=== PATIENT | female | born 1955 | race African-American/Black ===

== ENCOUNTER 2017-06-12 11:35 | Outpatient (CLI) | payer MEDICARE | END 2017-06-12 11:36 | disposition home or self-care (01) | LOC: BICMAMMO 11:35 | PROVIDERS: ATTEND Specialist | DX: Z12.31 Encounter for screening mammogram for malignant neoplasm of breast (principal) | CPT/HCPCS: 77063; 77067 ==

== ENCOUNTER 2018-08-29 10:30 | Outpatient (CLI) | payer MEDICARE ==
--- NOTE | 2018-08-29 11:36 | MMO ---
Bilateral MAMMO Bilat Screen [facility]. CLINICAL HISTORY: Patient is 62 years old and is seen for screening. The patient has no family history of breast cancer. The patient has no personal history of cancer. The patient has a history of right Excisional Biopsy in 1990 - benign. VIEWS: The views performed were: bilateral craniocaudal with tomosynthesis and bilateral mediolateral oblique with tomosynthesis. FILMS COMPARED: The present examination has been compared to prior imaging studies performed at [facility] on 01/13/2014, 01/18/2015, 03/07/2016 and 06/12/2017. MAMMOGRAM FINDINGS: The breasts are almost entirely fat. There are stable benign appearing calcifications seen in both breasts. There are no suspicious masses, suspicious calcifications, or new areas of architectural distortion. IMPRESSION: THERE IS NO MAMMOGRAPHIC EVIDENCE OF MALIGNANCY. A ROUTINE FOLLOW-UP MAMMOGRAM IN 1 YEAR IS RECOMMENDED. THE RESULTS OF THIS EXAM WERE SENT TO THE PATIENT. ACR BI-RADS Category 2 - Benign finding MAMMOGRAPHY NOTE: 1. A negative mammogram report should not delay a biopsy if a dominant of clinically suspicious mass is present. 2. Approximately 10% to 15% of breast cancers are not detected by mammography. 3. Adenosis and dense breasts may obscure an underlying neoplasm.
== END 2018-08-29 10:31 | disposition home or self-care (01) ==
LOC: BICMAMMO 10:30
PROVIDERS: ATTEND Family Medicine
DX: Z12.31 Encounter for screening mammogram for malignant neoplasm of breast (principal)
CPT/HCPCS: 77063; 77067

== ENCOUNTER 2019-04-07 07:52 | Inpatient (IN) | payer MEDICARE ==
[2019-04-06 13:35] VITALS: BMI 45.7
[2019-04-07] MEDS ORDERED: Lidocaine 1% PF 5 ML VIAL ONE (11:38)
[2019-04-07] MEDS ORDERED: PROPOFOL 200 MG/20 ML VIAL ONE (11:38)
--- NOTE | 2019-04-07 14:43 | OP ---
DATE OF PROCEDURE: 04/07/2019 PROCEDURE PERFORMED: Esophagogastroduodenoscopy. PREMEDICATION: Given by Anesthesiology Department. PREPROCEDURE DIAGNOSES: 1. Chronic gastroesophageal reflux disease. 2. Thomas's surveillance. POSTPROCEDURE DIAGNOSES: 1. Normal upper endoscopy. 2. Z-line at 39 cm and normal. DESCRIPTION OF PROCEDURE: Written consents were obtained prior to procedure. After adequate sedation, the forward-viewing endoscope was advanced down the stomach under direct vision to the second portion of duodenum. The duodenum appeared normal. The bulb appeared normal. The pylorus was patent. The gastric antrum, body, fundus, and cardia all appeared normal. Retroflexion demonstrated a small sliding-type hiatal hernia. The GE junction with Z-line is located at 39 cm and appeared regular and normal. The lower, mid, and upper esophagus appeared normal. ASSESSMENT: 1. Normal upper endoscopy. 2. Small sliding-type hiatal hernia. 3. Normal and regular Z-line without Thomas's. RECOMMENDATION: 1. Anti-reflux measures. 2. Weight reduction. 3. Continue with pantoprazole 40 mg p.o. daily. Job ID: [id number]
--- NOTE | 2019-04-07 14:47 | OP ---
DATE OF PROCEDURE: 04/07/2019 PROCEDURE PERFORMED: Colonoscopy. PREMEDICATION: Given by Anesthesiology Department. PREPROCEDURE DIAGNOSIS: History of colon polyps. POSTPROCEDURE DIAGNOSIS: Normal colon exam. DESCRIPTION OF PROCEDURE: Written consents were obtained prior to procedure. After adequate sedation, rectal exam was performed was normal. The endoscope was advanced to the cecum. The quality of the bowel prep was good. The cecum, ascending colon, hepatic flexure, transverse colon, splenic flexure, descending colon appeared normal. The sigmoid colon appeared to be somewhat torturous, but otherwise normal. Rectosigmoid junction was normal. Retroflexion did not show any abnormality. The patient tolerated the procedure well. ASSESSMENT: Normal colon exam. RECOMMENDATION: Repeat colon surveillance in 5 years. Job ID: [id number]
[2019-04-07] MEDS ORDERED: Acetaminophen 325 MG TAB PO PRN (15:00)
[2019-04-07] MEDS ORDERED: Ondansetron PF 4 MG/2 ML Vial IVP PRN (15:00)
[2019-04-07] MEDS ORDERED: Mag-Al 1200 mg/1200 mg/30 ML UDCUP ONE (15:04)
[2019-04-07] MEDS: Diltiazem HCl 125 MG, Admixture Fee 1 EACH in Sodium Chloride 0.9% 100 ML IVPB SCH (17:05)
--- NOTE | 2019-04-07 17:49 | CON ---
DATE OF CONSULTATION: HISTORY OF PRESENT ILLNESS: The patient is a 63-year-old woman with no known cardiac history who developed palpitations after undergoing an endoscopy. She was in her usual state of health and underwent the GI procedure today. She is in the recovery room. She developed palpitations. The patient denied having any chest discomfort. PAST MEDICAL HISTORY: 1. Hypertension. 2. Sinus problems. 3. Sciatic nerve problems. PAST SURGICAL HISTORY: Hysterectomy, , breast surgery, and thyroid surgery. SOCIAL HISTORY: Nonsmoker. FAMILY HISTORY: Positive family history of heart disease. ALLERGIES: NO KNOWN DRUG ALLERGIES. MEDICATIONS: 1. Lisinopril 5 daily. 2. Tramadol 50 b.i.d. 3. Synthroid 175 mcg daily. 4. Protonix 40 daily. 5. Multivitamin tablet daily. REVIEW OF SYSTEMS: Ten-point system otherwise unremarkable. No history of easy bruising or bleeding. PHYSICAL EXAMINATION: GENERAL: Obese woman, in no acute distress. VITAL SIGNS: With a blood pressure of 120/60. NECK: Showed no jugular venous distention. LUNGS: Clear to auscultation. HEART: Irregular rate and rhythm. Normal S1 and S2. ABDOMEN: Distended. EXTREMITIES: Showed no edema. VASCULAR: Radial pulses 2+ LABORATORY DATA: Laboratory results are pending. EKG atrial fibrillation otherwise unremarkable . IMPRESSION AND PLAN: 1. New onset atrial fibrillation. 2. Hypertension. 3. Obesity. This patient presents with new onset atrial fibrillation. The patient has a CHADS-VAS score of two, female sex, and hypertension. The patient will be treated with IV Cardizem. I have recommended proceeding with EDUARD/ cardioversion. We will start the patient on Eliquis . We will check the patient 's thyroid panel. We will follow this patient with you through her hospitalization. Job ID: [id number] [facility]
--- NOTE | 2019-04-07 18:17 | PDOC.HHP ---
Hospitalist HPI - History of Present Illness New onset Afib w RVR History of Present Illness: 63 YO F with PMH of hypothyroidism, morbid obesity, sciatica and GERD who was in the hospital for an outpt EGD and colonoscopy, for w/u of GERD and colon polyp. Post procedure, pt went into Afib w RVR. This is her first episode. Cardiology was called and pt was given a one time dose of Cardizem. She was rec by cardiology to be admitted for further evaluation. She will have a EDUARD and possible ablation tmr. Hospitalist ROS - Review of Systems Constitutional: denies: fever, chills, sweats, weakness, malaise, other Eyes: denies: pain, vision change, conjunctivae inflammation, eyelid inflammation, redness, other ENT: denies: ear pain, ear discharge, nose pain, nose discharge, nose congestion , mouth pain, mouth swelling, throat pain, throat swelling, other Respiratory: denies: cough, dry, shortness of breath, hemoptysis, SOB with excertion, pleuritic pain, sputum, wheezing, other Cardiovascular: denies: chest pain, palpitations, orthopnea, paroxysmal noc. dyspnea, edema, light headedness, other Musculoskeletal: reports: back pain. denies: neck pain, shoulder pain, arm pain , hand pain, leg pain, foot pain, other Skin: denies: rash, lesions, mp, bruising, other Neurological: denies: weakness, numbness, incoordination, change in speech, confusion, seizures, other - Medication Medications: Active Medications Generic Name Dose Route Start Last Admin Trade Name Freq PRN Reason Stop Dose Admin Diltiazem HCl 10 mg 04/07/19 16:45 04/07/19 17:05 Cardizem SLOW IVP 04/07/19 18:45 10 mg NOW EDWARD Administration Diltiazem HCl 125 mg/ 125 mls @ 10 mls/hr 04/07/19 16:45 04/07/19 17:05 Miscellaneous Medication 1 IVPB 125 mls each/ Sodium Chloride INF EDWARD Administration Protocol As Directed Hospitalist History - Past Medical History Gastrointestinal: reports: GERD Musculoskeletal: reports: Chronic low back pain Endocrine: reports: Hypothyroidism - Past Surgical History Past Surgical History: reports: Breast Biopsy, , Other (Thyroid Sx) - Family History Family History: reports: hypertension - Social History Smoking Status: Never smoker Alcohol: reports: None Drugs: reports: none Living Situation: With Family - Exam General Appearance: NAD, awake alert Eye: PERRL, anicteric sclera ENT: normocephalic atraumatic, no oropharyngeal lesions, moist mucosa Neck: supple, symmetric, no JVD, no thyromegaly, no lymphadenopathy Heart: no murmur, no gallops, no rubs, normal peripheral pulses, irregular Respiratory: CTAB, no wheezes, no rales, no ronchi Gastrointestinal: soft, non-tender, non-distended, normal bowel sounds Extremities: no cyanosis, no clubbing, no edema Skin: normal turgor, no lesions Neurological: cranial nerve grossly intact, normal sensation to touch, no focal deficits Musculoskeletal: normal tone, normal strength Psychiatric: normal affect, normal behavior, A&O x 3 Hospitalist H&P A/P - Problem (1) Paroxysmal A-fib Code(s): I48.0 - PAROXYSMAL ATRIAL FIBRILLATION Status: Acute Assessment and Plan: New onset. Seen by cardiology. Will be started on a cardizem gtt, and will have a EDUARD w possible ablation tmr. (2) GERD (gastroesophageal reflux disease) Code(s): K21.9 - GASTRO-ESOPHAGEAL REFLUX DISEASE WITHOUT ESOPHAGITIS Status: Acute Qualifiers: Esophagitis presence: without esophagitis Qualified Code(s): K21.9 - Gastro -esophageal reflux disease without esophagitis Assessment and Plan: Cont PPI. F/u with EGD results. (3) Colon polyp Code(s): K63.5 - POLYP OF COLON Status: Acute Qualifiers: Colon polyp type: unspecified Assessment and Plan: s/p Colonoscopy. Will f/u with GI for biopsy results as an outpt. (4) Hypothyroidism Code(s): E03.9 - HYPOTHYROIDISM, UNSPECIFIED Status: Acute Qualifiers: Hypothyroidism type: acquired Qualified Code(s): E03.9 - Hypothyroidism, unspecified Assessment and Plan: Cont synthroid. Will check TSH. - Plan Plan: PPx: PPI. CODE: FULL. Dispo: Admit as inpatient.
--- NOTE | 2019-04-07 21:31 | PRG ---
DATE OF SERVICE: 04/07/2019 HISTORY OF PRESENT ILLNESS: Mrs. Yates is a 63-year-old female who underwent an outpatient upper endoscopy and colonoscopy by me this morning. She did well with the procedure. There was no significant abnormalities seen with her examinations. In the postop area, she had palpitations. Subsequent electrocardiogram demonstrated atrial fibrillation with rapid rate. This was controlled with Cardizem. She was admitted for further evaluation with plan for transesophageal echocardiogram and possible ablation. PHYSICAL EXAMINATION: VITAL SIGNS: Temperature 98.1, blood pressure 112/83, pulse of 98. GENERAL: She is alert, in no distress. EYES: Shows anicteric sclerae. NECK: Supple. CV: Shows normal S1, S2. Regular rate. CHEST: Shows breath sounds. ABDOMEN: Protuberant, but soft and nontender. She has active bowel sounds. EXTREMITIES: Shows no edema. ASSESSMENT: 1. Status post outpatient esophagogastroduodenoscopy and colonoscopy this morning without significant finding. The evaluation was done for chronic gastroesophageal reflux disease and history of colon polyp. 2. No significant gastrointestinal issue at the present time. 3. New onset atrial fibrillation. PLAN: GI service is available, if needed. I will follow patient peripherally. Job ID: [id number]
[2019-04-07] MEDS: traMADol HCl 50 MG TAB PO SCH (21:55)
[2019-04-07] MEDS: Apixaban 5 MG TAB PO SCH (21:55)
[2019-04-08] MEDS: Diltiazem HCl 125 MG, Admixture Fee 1 EACH in Sodium Chloride 0.9% 100 ML IVPB SCH (03:43)
[2019-04-08 04:45] LABS: #Basophils 0.1 thou/uL (0.0-0.2); #Eosinphils 0.1 thou/uL (0.0-0.7); #Lymphocytes 2.8 thou/uL (1.20-3.40); #Monocytes 0.5 thou/uL (0.11-0.59); #Neutrophils 5.2 thou/uL (1.40-6.50); %Basophils 0.7 % (0.0-1.0); %Eosinophils 1.1 % (0.0-10.0); %Neutrophils 60.2 % (42.0-75.0); Mean Corpuscular HGB CONC 31.1 g/dL (32.0-36.0); Mean Corpuscular Hemoglobin 26.9 pg (27.0-31.0); Mean Corpuscular Volume 86.5 fL (78.0-98.0); Mean Platelet Volume 8.2 fL (7.4-10.4); Platelet Count 240 thou/uL (130-400); RBC Distribution Width 13.3 % (11.5-14.5); Red Blood Cell (RBC) Count 4.85 mill/uL (4.20-5.40); White Blood Cell (WBC) Count 8.7 thou/uL (4.8-10.8)
[2019-04-08 04:54] LABS: Anion Gap 13 mmol/L (10-20); BUN (Urea Nitrogen) 8 mg/dL (9.8-20.1); Calc. Creatinine Clearance 143 mL/min (70-130); Calcium 9.1 mg/dL (7.8-10.44); Carbon Dioxide 24 mmol/L (23-31); Chloride 108 mmol/L (98-107); Estimated GFR-MDRD Greater than 90; Glucose 112 mg/dL (80-115); Potassium 3.5 mmol/L (3.5-5.1); Sodium 141 mmol/L (136-145)
[2019-04-08] MEDS: Levothyroxine 175 MCG TAB PO SCH (07:41)
--- NOTE | 2019-04-08 08:55 | PDOC.FM ---
- Subjective Subjective: Patient started on IV cardizem yesterday which was continued overnight & remains in afib this AM. Plans for EDUARD with cardioversion per cards this AM. Per nurse patient reported "feeling like crap and endorsed having some nausea this AM. Also per nurse BP has been running a little lower this AM on the cardizem compared to yesterday. - Objective MAR Reviewed: Yes Vital Signs & Weight: Vital Signs (12 hours) Temp Pulse Resp BP Pulse Ox 04/08/19 08:00 98.1 F 118 H 20 118/70 98 04/08/19 07:24 100 04/08/19 03:22 98.0 F 62 17 102/55 L 97 Weight Weight 113.398 kg I&O: 04/07/19 04/08/19 04/09/19 06:59 06:59 06:59 Intake Total 400 Balance 400 Result Diagrams: 04/08/19 04:25 04/08/19 04:25 Phys Exam - Physical Examination Constitutional: NAD obese AAF female sitting on shower chair in shower no respiratory distress Neurological: non-focal, moves all 4 limbs Psychiatric: normal affect, A&O x 3 Dx/Plan (1) Atrial fibrillation with rapid ventricular response Code(s): I48.91 - UNSPECIFIED ATRIAL FIBRILLATION Status: Acute (2) Obesity Code(s): E66.9 - OBESITY, UNSPECIFIED Status: Chronic Qualifiers: Obesity classification: adult class 3 (BMI >= 40) Body mass index: BMI 45.0 -49.9 (3) HTN (hypertension) Code(s): I10 - ESSENTIAL (PRIMARY) HYPERTENSION Status: Chronic Qualifiers: Hypertension type: essential hypertension Qualified Code(s): I10 - Essential (primary) hypertension (4) Colon polyp Code(s): K63.5 - POLYP OF COLON Status: Chronic Qualifiers: Colon polyp type: unspecified (5) GERD (gastroesophageal reflux disease) Code(s): K21.9 - GASTRO-ESOPHAGEAL REFLUX DISEASE WITHOUT ESOPHAGITIS Status: Chronic Qualifiers: Esophagitis presence: without esophagitis Qualified Code(s): K21.9 - Gastro -esophageal reflux disease without esophagitis (6) Hypothyroidism Code(s): E03.9 - HYPOTHYROIDISM, UNSPECIFIED Status: Chronic Qualifiers: Hypothyroidism type: acquired Qualified Code(s): E03.9 - Hypothyroidism, unspecified - Plan Plan: 63YOF with a PMH significant for HTN, obesity & hypothyroidism who was admitted due to the development of new onset a fib with RVR following an EGD & c-scope yesterday for persistent GERD refractory to PPI therapy. New onset A-fib with RVR - New onset following EGD & c-scope yesterday with Dr. Marin. Seen by Cardiology , Dr. Sharma yesterday who plans to take patient back for EDUARD with cardioversion this AM. - Will continue cardizem gtt pending procedure. - Will check thyroid studies & MG & phos levels as well this AM. K WNLs. #GERD w/o esophagitis: - Nothing noted on EGD done with Dr. Marin yesterday. Continue PPI therapy pending GI recs. #h/o colon polyp: - Aware, s/p Colonoscopy yesterday with no polyps found. Per GI next c-scope due in 5 years. Appreciate recs. #hypothyroidism Cont synthroid. Will check TSH. #HTN - Will resume home meds s/p procedure as tolerated by patient. #Obesity - BMI just over 45. Will encourage weight loss. IVFs: None Abx: None GI PPx: PPI. DVT PPX: Eliquis CODE: FULL. PCP: CAROL Dispo: Will continue to follow on telemetry with cards for new onset a fib s/p scopes yesterday. Anticipated LOS >2 midnights pending clinical course. Addendum - Attending - Attending Attestation Date/Time: 04/08/19 1339 I personally evaluated the patient and discussed the management with Dr. Garcia I agree with the History, Examination, Assessment and Plan documented above with any addition or exceptions noted below - Patient reports she is feeling much better. nausea resolved. Afebrile VSS. A/P: 1) New onset A-fib s/p cardioversion- now in sinus rhythym. Continue current meds as per cardiology, 2 ) HTN- well controlled; continue current meds.
[2019-04-08] MEDS ORDERED: Stress 600 With Zinc 1 TAB PO SCH (09:00)
[2019-04-08] MEDS ORDERED: Enoxaparin Sodium 40 MG/0.4 ML SYRINGE SC SCH (09:00)
[2019-04-08] MEDS ORDERED: Lisinopril 5 MG TAB PO SCH (09:00)
[2019-04-08] MEDS ORDERED: Fish Oil 1,000 MG CAP PO SCH (09:00)
[2019-04-08 09:33] LABS: Phosphorus 3.3 mg/dL (2.3-4.7)
[2019-04-08 09:44] LABS: Free T4 (Free Thyroxine) 1.23 ng/dL (0.70-1.48); Thyroid Stimulating Hormone 1.41 uIU/mL (0.35-4.94)
[2019-04-08] MEDS ORDERED: PROPOFOL 20 ML ONE (10:05)
[2019-04-08] MEDS ORDERED: PROPOFOL 200 MG/20 ML VIAL ONE (12:44)
[2019-04-08] MEDS: Apixaban 5 MG TAB PO SCH ×2 (12:56→20:24)
[2019-04-08] MEDS: Calcium Carbonate + Vit D 1 TAB PO SCH (12:56)
[2019-04-08] MEDS: traMADol HCl 50 MG TAB PO SCH ×2 (12:57→20:23)
[2019-04-08] MEDS: Multivit, Therapeutic 1 TAB PO SCH (12:57)
[2019-04-09] MEDS: Levothyroxine 175 MCG TAB PO SCH (05:30)
--- NOTE | 2019-04-09 06:17 | PDOC.FM ---
- Subjective Subjective: NAEO. Patient's HR has remained WNLs since cardioversion yesterday morning. Denies any N/V/D, dizziness, palpitations, or chest pain this AM btu does endorse a slight headache. Ready to go home today. - Objective MAR Reviewed: Yes Vital Signs & Weight: Vital Signs (12 hours) Temp Pulse Resp BP Pulse Ox 04/09/19 03:56 98.4 F 65 18 113/63 98 04/08/19 19:26 97.7 F 73 16 122/63 96 Weight Weight 113.398 kg I&O: 04/07/19 04/08/19 04/09/19 06:59 06:59 06:59 Intake Total 400 500 Balance 400 500 Result Diagrams: 04/08/19 04:25 04/08/19 04:25 Phys Exam - Physical Examination Constitutional: NAD HEENT: moist MMs Neck: supple Respiratory: no wheezing, no rales, no rhonchi, clear to auscultation bilateral Cardiovascular: RRR, no significant murmur obese Musculoskeletal: no edema Neurological: non-focal, moves all 4 limbs Psychiatric: normal affect, A&O x 3 Skin: no rash, normal turgor, cap refill <2 seconds Dx/Plan (1) Atrial fibrillation with rapid ventricular response Code(s): I48.91 - UNSPECIFIED ATRIAL FIBRILLATION Status: Resolved (2) Obesity Code(s): E66.9 - OBESITY, UNSPECIFIED Status: Chronic Qualifiers: Obesity classification: adult class 3 (BMI >= 40) Body mass index: BMI 45.0 -49.9 (3) HTN (hypertension) Code(s): I10 - ESSENTIAL (PRIMARY) HYPERTENSION Status: Chronic Qualifiers: Hypertension type: essential hypertension Qualified Code(s): I10 - Essential (primary) hypertension (4) Colon polyp Code(s): K63.5 - POLYP OF COLON Status: Chronic Qualifiers: Colon polyp type: unspecified (5) GERD (gastroesophageal reflux disease) Code(s): K21.9 - GASTRO-ESOPHAGEAL REFLUX DISEASE WITHOUT ESOPHAGITIS Status: Chronic Qualifiers: Esophagitis presence: without esophagitis Qualified Code(s): K21.9 - Gastro -esophageal reflux disease without esophagitis (6) Hypothyroidism Code(s): E03.9 - HYPOTHYROIDISM, UNSPECIFIED Status: Chronic Qualifiers: Hypothyroidism type: acquired Qualified Code(s): E03.9 - Hypothyroidism, unspecified - Plan Plan: 63YOF with a PMH significant for HTN, obesity & hypothyroidism who was admitted due to the development of new onset a fib with RVR following an EGD & c-scope yesterday for persistent GERD refractory to PPI therapy. #New onset A-fib with RVR, resolved - Patient is now day #1 s/p cardioversion and has remained in sinus since her procedure. - Will continue BID metoprolol & eliquis per cards recs. #GERD w/o esophagitis: - Nothing noted on EGD done with Dr. Marin on 04/07. Continue PPI therapy pending GI recs. #h/o colon polyp: - Aware, s/p Colonoscopy yesterday with no polyps found. Per GI next c-scope due in 5 years. Appreciate recs. #hypothyroidism - Will continue synthroid @ current dose as thyroid functions tests were WNLs. #HTN - Will continue BID metoprolol per cards recs. #Obesity - BMI just over 45. Encouraged weight loss. #h/o migraines - Will refill previous dose of amitriptyline 25mg HS for migraine PPX. IVFs: None Abx: None GI PPx: PPI. DVT PPX: Eliquis CODE: FULL PCP: DONA Pa Dispo: Will d/c home per cardiology with close follow-up with cards & PCP. Addendum - Attending - Attending Attestation Date/Time: 04/09/19 [id number] I personally evaluated the patient and discussed the management with Dr. Garcia I agree with the History, Examination, Assessment and Plan documented above with any addition or exceptions noted below. new onset afib after egd/colon- s/p chepe and cardioversion. stable to d/c per cards f/u with PCP to further address migraine fine's
--- NOTE | 2019-04-09 08:30 | OP ---
DATE OF PROCEDURE: 04/08/2019 PROCEDURE PERFORMED: Transesophageal echocardiogram. INDICATION: A 63-year-old woman with paroxysmal atrial fibrillation. DESCRIPTION OF PROCEDURE: The patient was taken to the PACU. The patient was sedated by Anesthesiology. A transesophageal probe was placed into the distal esophagus and stomach. Echocardiographic images were obtained. The transesophageal probe was removed. FINDINGS: 1. Normal left ventricular systolic function. 2. Left atrial enlargement. 3. Normal mitral and aortic valves. 4. No significant valvular regurgitation. 5. No formed thrombus in the left atrium or left atrial appendage. 6. Atherosclerotic debris in the descending aorta. IMPRESSION: No formed thrombus in the left atrium or left atrial appendage. Job ID: [id number] [facility]
--- NOTE | 2019-04-09 08:31 | OP ---
DATE OF PROCEDURE: 04/08/2019 PROCEDURE PERFORMED: Electrical cardioversion. INDICATIONS FOR PROCEDURE: A 63-year-old woman with paroxysmal atrial fibrillation. DESCRIPTION OF PROCEDURE: The patient was taken to the PACU. The patient was sedated by Anesthesiology. The patient was shocked with 200 joules of synchronized electricity. The patient was converted to normal sinus rhythm. IMPRESSION: Successful electrical cardioversion. Job ID: [id number]
[2019-04-09] MEDS ORDERED: Fioricet 325/50/40 mg Tablet PO SCH (08:45)
[2019-04-09] MEDS: Calcium Carbonate + Vit D 1 TAB PO SCH (09:18)
[2019-04-09] MEDS: Apixaban 5 MG TAB PO SCH (09:18)
[2019-04-09] MEDS: Multivit, Therapeutic 1 TAB PO SCH (09:19)
[2019-04-09] MEDS: traMADol HCl 50 MG TAB PO SCH (11:49)
[2019-04-09 11:53] VITALS: BP 131/64; TEMP 97.7
[2019-04-09] MEDS ORDERED: Amitriptyline HCl 25 MG TAB PO SCH (21:00)
== END 2019-04-09 13:24 | disposition home or self-care (01) | DRG 309 ==
LOC: SDC 07:52 → 2NO 16:35
PROVIDERS: ADMIT Hospitalist; ATTEND Internal Medicine Gastroenterology
PROC: 0DJ08ZZ Inspection of Upper Intestinal Tract, Via Natural or Artificial Opening Endoscopic (ICD-10-PCS; 2019-04-07)
PROC: 0DJD8ZZ Inspection of Lower Intestinal Tract, Via Natural or Artificial Opening Endoscopic (ICD-10-PCS; 2019-04-07)
PROC: 5A2204Z Restoration of Cardiac Rhythm, Single (ICD-10-PCS; principal; 2019-04-08)
PROC: B24BZZ4 Ultrasonography of Heart with Aorta, Transesophageal (ICD-10-PCS; 2019-04-08)
DX: I48.0 Paroxysmal atrial fibrillation (principal); Z68.42 Body mass index [BMI] 45.0-49.9, adult; K21.9 Gastro-esophageal reflux disease without esophagitis; K44.9 Diaphragmatic hernia without obstruction or gangrene; E03.9 Hypothyroidism, unspecified; E66.01 Morbid (severe) obesity due to excess calories; G89.29 Other chronic pain; M54.5 Low back pain; G43.909 Migraine, unspecified, not intractable, without status migrainosus; Z86.010 Personal history of colon polyps; Z90.710 Acquired absence of both cervix and uterus; Z79.899 Other long term (current) drug therapy; Z79.890 Hormone replacement therapy
CPT/HCPCS: 36415; 80048; 83735; 84100; 84439; 84443; 84481; 85025; 92960; 93005; 93010; 93312; J2001; J2405; J2704; J3490

== ENCOUNTER 2019-09-09 07:47 | Outpatient (CLI) | payer MEDICARE ==
--- NOTE | 2019-09-09 08:38 | MMO ---
Bilateral MAMMO Bilat Screen [facility]DI+SUGEY. CLINICAL HISTORY: Patient is 64 years old and is seen for screening. The patient has no family history of breast cancer. The patient has no personal history of cancer. The patient has a history of right Excisional Biopsy in 1990 - benign. VIEWS: The views performed were: bilateral craniocaudal with tomosynthesis and bilateral mediolateral oblique with tomosynthesis. FILMS COMPARED: The present examination has been compared to prior imaging studies performed at [facility] on 01/18/2015, 03/07/2016, 06/12/2017 and 08/29/2018. This study has been interpreted with the assistance of computer-aided detection. MAMMOGRAM FINDINGS: The breasts are almost entirely fat. There are no suspicious masses, suspicious calcifications, or new areas of architectural distortion. IMPRESSION: THERE IS NO MAMMOGRAPHIC EVIDENCE OF MALIGNANCY. A ROUTINE FOLLOW-UP MAMMOGRAM IN 1 YEAR IS RECOMMENDED. THE RESULTS OF THIS EXAM WERE SENT TO THE PATIENT. ACR BI-RADS Category 1 - Negative MAMMOGRAPHY NOTE: 1. A negative mammogram report should not delay a biopsy if a dominant of clinically suspicious mass is present. 2. Approximately 10% to 15% of breast cancers are not detected by mammography. 3. Adenosis and dense breasts may obscure an underlying neoplasm. Reported by: BRITANY CALHOUN MD Electonically Signed: [id number]
== END 2019-09-09 07:48 | disposition home or self-care (01) ==
LOC: BICMAMMO 07:47
PROVIDERS: ATTEND Family Medicine
DX: Z12.31 Encounter for screening mammogram for malignant neoplasm of breast (principal); Z91.89 Other specified personal risk factors, not elsewhere classified
CPT/HCPCS: 77063; 77067

== ENCOUNTER 2022-02-01 11:04 | Outpatient (CLI) | payer MEDICARE | END 2022-02-01 11:05 | disposition home or self-care (01) | LOC: BICMAMMO 11:04 | PROVIDERS: ATTEND Family Medicine | DX: Z12.31 Encounter for screening mammogram for malignant neoplasm of breast (principal); Z91.89 Other specified personal risk factors, not elsewhere classified | CPT/HCPCS: 77063; 77067 ==

== ENCOUNTER 2023-01-14 12:33 | Outpatient (CLI) | payer MEDICARE | END 2023-01-14 12:34 | disposition home or self-care (01) | LOC: BICRAD 12:33 | PROVIDERS: ATTEND Student in an Organized Health Care Education/Training Program | DX: M25.561 Pain in right knee (principal); M17.11 Unilateral primary osteoarthritis, right knee ==

== ENCOUNTER 2023-03-19 10:34 | Outpatient (CLI) | payer MEDICARE | END 2023-03-19 10:35 | disposition home or self-care (01) | LOC: BICMAMMO 10:34 | PROVIDERS: ATTEND Student in an Organized Health Care Education/Training Program | DX: Z12.31 Encounter for screening mammogram for malignant neoplasm of breast (principal); Z13.820 Encounter for screening for osteoporosis; Z91.89 Other specified personal risk factors, not elsewhere classified | CPT/HCPCS: 77063; 77067; 77080 ==